=== PATIENT | female | born 1995 | race Two or more races ===

== ENCOUNTER 2018-05-14 21:04 | Emergency (ER) | payer MEDICAID ==
[~2018-05-14] VITALS: Ht 157.5 cm; Wt 69.4 kg
[2018-05-14 21:30] VITALS: BP 148/96
[2018-05-14] MEDS ORDERED: Morphine Sulfate 4mg/ml Inj IVP ONE ×2 (21:30→22:15)
--- NOTE | 2018-05-14 21:32 | Emergency Room Report ---
History of Present Illness General Chief Complaint: Abdominal Pain Source: Patient Present Illness [facility] This is a 22-year-old female with a history of gallstones. Has been ongoing for about 2 months ever since she gave . She has been to the hospital already had ultrasound. Just got a referral to see Dr. Alvarado, surgeon. She presents with chief complaint of right upper quadrant abdominal pain similar to before. Onset for the last few hours. Radiating to the back and felt nauseous. No vomiting. No fever chills but no jaundice. Pain is 8 out of 10. Does not have any pain medication. Allergies: Coded Allergies: No Known Allergies (Unverified , 05/14/18) Patient History Past Medical History: see triage record, old chart reviewed Past Surgical History: other Pertinent Family History: none Social History: Denies: smoking Last Menstrual Period: 06/2017 Now: No : 2 Para: 2 Immunizations: other Reviewed Nursing Documentation: PMH: Agreed; PSxH: Agreed Nursing Documentation-PMH Past Medical History: No History, Except For Hx Gastrointestinal Problems: Yes - gallstones Review of Systems Eye: Denies: eye pain, blurred vision ENT: Denies: ear pain, nose congestion, throat swelling Respiratory: Denies: cough, shortness of breath Cardiovascular: Denies: chest pain, palpitations Gastrointestinal: Reports: abdominal pain, nausea; Denies: diarrhea, vomiting Musculoskeletal: Denies: back pain, joint pain Skin: Denies: rash Neurological: Denies: headache, numbness Endocrine: Denies: increased thirst, increased urine Hematologic/Lymphatic: Denies: easy bruising All Other Systems: negative except mentioned in HPI Physical Exam Vital Signs Date Time Temp Pulse Resp B/P (MAP) Pulse Ox O2 Delivery O2 Flow Rate FiO2 05/14/18 21:08 98.3 72 16 148/96 96 Room Air 98.2 vitals unremarkable Sp02 EP Interpretation: reviewed, normal General Appearance: well appearing, no apparent distress, alert Head: normocephalic, atraumatic Eyes: bilateral eye PERRL, bilateral eye EOMI ENT: hearing grossly normal, normal pharynx Neck: full range of motion, supple, no meningismus Respiratory: chest non-tender, lungs clear, normal breath sounds Cardiovascular #1: regular rate, rhythm, no murmur Gastrointestinal: normal bowel sounds, no mass, no organomegaly, no bruit, non- distended, tenderness - Mild, right upper quadrant Musculoskeletal: back normal, gait/station normal, normal range of motion Psychiatric: mood/affect normal Skin: warm/dry Medical Decision Making Diagnostic Impression: Primary Impression: Cholelithiasis Qualified Codes: K80.20 - Calculus of gallbladder without cholecystitis without obstruction Additional Impressions: Biliary colic UTI (urinary tract infection) Qualified Codes: N30.00 - Acute cystitis without hematuria ER Course Patient presents with biliary colic. No evidence of infection or obstruction. Pain resolved now. She just got a referral to see a surgeon. We'll discharge home with pain medication. Lab Results Impression labs unremarkable Last Vital Signs Date Time Temp Pulse Resp B/P (MAP) Pulse Ox O2 Delivery O2 Flow Rate FiO2 05/14/18 21:08 98.3 72 16 148/96 96 Room Air 98.2 Status: improved Disposition: HOME, SELF-CARE Condition: Stable Scripts Hydrocodone Bit/Acetaminophen 5-325* (NORCO 5-325*) 1 Each Tablet 1 TAB ORAL Q6H PRN for For Pain, #30 TAB 0 Refills Prov: ALEX MORELOS M.D. 05/14/18 Additional Instructions: Follow-up with surgeon as soon as possible. Return if symptom worsen. ALEX MORELOS M.D. May 14, 2018 21:32
[2018-05-14 21:53] LABS: APPEARANCE,URINE SLIGHTLY CLOUDY; BILIRUBIN, URINE NEGATIVE (NEGATIVE); GLUCOSE, URINE (UA) NEGATIVE (NEGATIVE); KETONES,URINE NEGATIVE (NEGATIVE); LEUKOCYTE ESTERASE ,URINE 3+ (NEGATIVE); NITRITE,URINE NEGATIVE (NEGATIVE); PH,URINE 6 (4.5-8.0); PROTEIN,URINE NEGATIVE (NEGATIVE); UROBILINOGEN,URINE NORMAL MG/DL (0.0-1.0)
[2018-05-14 21:54] LABS: COLOR,URINE YELLOW
[2018-05-14 22:05] LABS: BASOPHILS % (AUTO) 0.8 % (0.0-2.0); EOSINOPHILS % (AUTO) 1.7 % (0.0-3.0); HEMATOCRIT 34.8 % (37.0-47.0); HEMOGLOBIN 11.3 G/DL (12.0-16.0); LYMPHOCYTES % (AUTO) 41.1 % (20.0-45.0); MEAN CORPUSCULAR VOLUME 82 FL (80-99); MONOCYTES % (AUTO) 6.4 % (1.0-10.0); PLATELET COUNT 240 K/UL (150-450); RED BLOOD COUNT 4.23 M/UL (4.20-5.40); RED CELL DISTRIBUTION WIDTH 14.8 % (11.6-14.8); WHITE BLOOD COUNT 7.7 K/UL (4.8-10.8)
[2018-05-14] MEDS ORDERED: Ketorolac 30mg Inj IV ONE (22:15)
[2018-05-14 22:27] LABS: ANION GAP 9 mmol/L (5-15); BLOOD UREA NITROGEN 10 mg/dL (7-18); CALCIUM 9.3 MG/DL (8.5-10.1); CARBON DIOXIDE 24 MMOL/L (21-32); CHLORIDE 107 MMOL/L (98-107); CREATININE 0.8 MG/DL (0.55-1.30); POTASSIUM 3.7 MMOL/L (3.5-5.1); SODIUM 140 MMOL/L (136-145)
[2018-05-14 22:31] LABS: ALANINE AMINOTRANSFERASE 35 U/L (12-78); ALBUMIN 3.7 G/DL (3.4-5.0); ALKALINE PHOSPHATASE 84 U/L (46-116); ASPARTATE AMINO TRANSFERASE 27 U/L (15-37); BILIRUBIN,TOTAL 0.1 MG/DL (0.2-1.0)
[2018-05-14] MEDS ORDERED: cefTRIAXone 1 GM in NS 55 ML IVPB ONE (22:45)
[2018-05-14] MEDS ORDERED: NORCO 5-325 TA1 EACH ORAL (22:50)
[2018-05-14 23:10] VITALS: BP 148/96
== END 2018-05-14 23:10 | disposition home or self-care (01) ==
LOC: EMR 21:40
DX: K80.20 Calculus of gallbladder without cholecystitis without obstruction (principal); N39.0 Urinary tract infection, site not specified
CPT/HCPCS: 36415; 80053; 81003; 81025; 83690; 85025; 87086; 96361; 96365; 96375; 96376; 99284; J0696; J2270; J2405; 96360; 96374